=== PATIENT | male | born 1960 | race Caucasian/White ===

== ENCOUNTER 2017-05-12 19:20 | Observation (INO) | payer MEDICARE, SELFPAY ==
[2017-05-12 19:21] VITALS: BP 112/70; PULSE 77; RESP 18; TEMP 36.7; O2SAT 98; BMI 25.7
--- NOTE | 2017-05-12 20:08 | CT_ITS ---
STUDY: CT ABDOMEN AND PELVIS WITHOUT CONTRAST REASON FOR EXAM: Male, 56 years old. Abdominal pain, paracentesis performed today. RADIATION DOSAGE (If Supplied By Facility): CTDIvol = ( 14.17 ) mGy, DLP = ( 754.19 ) mGycm TECHNIQUE: Transaxial images were obtained from the dome of the diaphragm to the symphysis pubis without oral contrast, and without intravenous contrast. Sagittal and coronal images were reconstructed. Individualized dose optimization techniques were used for this CT. COMPARISON: 30 April 2017 FINDINGS: The visualized lung bases are unremarkable. The visualized portions of the heart are within normal limits. There is a diffuse contour abnormality of the liver consistent with cirrhotic changes. There are multiple gallstones. Normal spleen. Normal pancreas. Normal bilateral adrenal glands. Normal right kidney. Normal left kidney. Normal visualized stomach. Normal small intestine. Normal colon. The appendix is visualized and appears normal. There is diffuse atherosclerotic calcification of the abdominal aorta with elongation and tortuosity, but without a demonstrated aneurysm. Normal inferior vena cava. There is diffuse ascites throughout the abdomen particularly within the upper quadrants and bilateral paracolic gutters overall similar in comparison to the previous exam. Scattered mesenteric subcentimeter lymph nodes are present. Bladder is collapsed. Normal visualized prostate gland. Subcutaneous fluid layering within the right lower quadrant consistent with small fluid containing hernia is present. There are diffuse degenerative changes of the visualized lumbar spine. CT/Abdomen/Pelvis without Cont IMPRESSION: 1. Overall similar exam compared to 30 April 2017 with heterogeneous, nodular cirrhotic appearing liver. Unchanged diffuse abdominal ascites is present. 2. No evidence of bowel dilatation or air-fluid levels to suggest ileus versus obstruction. Scattered mesenteric lymph nodes similar to prior exam. Electronically Signed: Steven Perez DO at 22:10 EDT , Service support ,
[2017-05-12 20:46] LABS: Absolute Lymphocyte Count 1.88 X10^3/ul (0.83-4.51); Absolute Neutrophil Count 12.5 X10^3/uL (2.0-7.7); Basophil# 0.03 X10^3/uL; Basophil% 0.2 % (0-1); Eosinophil# 0.03 X10^3/uL; Eosinophils% 0.2 % (0-5); Hemoglobin 15.3 g/dl (13.0-16.5); Lymphocyte # 1.88 X10^3/ul (4.0); Lymphocyte % 11.6 % (19-41); Mean Corpuscular Hgb 32.8 pg (27.0-32.0); Mean Corpuscular Volume 96.4 fL (80-94); Mean Platelet Vol. 10.3 fl (6.2-12.0); Monocyte% 10.5 % (0-10); Neutrophil # 12.46 X10^3/uL (2.7-7.7); Neutrophil % 76.9 % (47-70); Platelet Count 117 K/mm3 (150-450); RBC Distribution Width CV 16.9 % (11.6-14.6); RBC Distribution Width SD 58.6 fl (35.1-43.9); Red Blood Count 4.67 M/mm3 (4.6-6.2); White Blood Count 16.2 K/mm3 (4.4-11.0)
[2017-05-12 20:47] LABS: Differential Indicated SCAN CRITERIA MET; POSITIVE COUNT NO; POSITIVE DIFFERENTIAL YES; POSITIVE MORPHOLOGY NO
[2017-05-12] MEDS: HYDROmorphone 1 MG/ML Syringe IV ×2 (20:56→22:36)
[2017-05-12] MEDS: Ondansetron 4 MG/2 ML Vial IV (20:56)
[2017-05-12] MEDS: 0.9% Normal Saline 1,000 ML 250 ML IV (20:57)
[2017-05-12 21:09] LABS: Differential Comment SCANNED
[2017-05-12 22:09] VITALS: PULSE 76; RESP 14; O2SAT 100
[2017-05-12 23:56] LABS: ALB/GLOB Ratio 0.5 RATIO (0.9-2.4); AST(SGOT) 66 U/L (15-37); Alanine Aminotransfer ALT/SGPT 21 U/L (12-78); Albumin, Serum 1.9 g/dL (3.4-5.0); Alkaline Phosphatase 302 U/L (45-117); Anion Gap 12 (5-15); BUN 26 mg/dL (7-18); BUN/Creat Ratio 5.5 RATIO (10-20); Calcium,Total 8.7 mg/dL (8.5-10.1); Chloride 98 mmol/L (98-107); EST Glomerular Filtration Rate 14 mL/min (>60); Est Glom Filt Rate - Afr Amer 17 mL/min (>60); Estimated Creatinine Clearance 18.69 ml/min; Globulin 3.5 g/dL (2.2-4.2); Glucose 98 mg/dL (70-110); Lipase 146 U/L (73-393); Potassium 5.1 mmol/L (3.5-5.1); Protein, Total 5.4 g/dL (6.4-8.2); Sodium Level 132 mmol/L (136-145)
--- NOTE | 2017-05-12 23:57 | ED.VISSUMM ---
- ER Visit Summary Date of Service: 05/12/17 Chief Complaint: [Abdominal pain] History of Present Illness: The patient is a 56 M [presents with abdominal pain that started after having his paracentesis today. Patient has a history of liver failure and chronic renal failure.. Patient has had similar pain like this multiple times in the past after paracentesis. Patient denies any fever. He has never had bacterial peritonitis. Patient's had some nausea today but no vomiting. He denies any diarrhea. Patient does not make urine.] Physical Examination: [HEENT-PERRLA, EOMI. Cranial nerves II through XII grossly intact. TMs clear. Mucous membranes moist. No adenopathy. Cardiovascular-regular rate and rhythm without murmur or ectopy Lungs-clear to auscultation, chest wall stable without crepitus or subcu emphysema Abdomen-normoactive bowel sounds, soft, tender diffusely with guarding. No rebound, rigidity or peritoneal signs. Extremities-intact ?4, normal range of motion, normal pulses, atraumatic] Test Results: [CBC with differential obtained showed elevated white blood cell count of 16.2, hemoglobin 15, hematocrit 45, platelets 117. Chemistries are pending. CT scan of the abdomen and pelvis showed chronic changes nothing significant.] Emergency Department Course and Treatment: [Patient was medicated with Dilaudid multiple times and continues to complain of pain he was also ordered fentanyl.] Treatment Plan: [Admit for pain control]. I do not feel patient has peritonitis. Disposition: [Admit] Impression: [Intractable abdominal pain] ED Disposition - Plan for ED Patient: Chief Complaint: Abd Pain Referrals: Huy Talbot III, MD [Primary Care Provider] -
[2017-05-13] VITALS (10 sets, daily range): BP systolic 103–121; BP diastolic 52–79; PULSE 67–83; RESP 12–18; TEMP 35.4–37.3; O2SAT 96–100; BMI 23.6
[2017-05-13] MEDS: fentaNYL 100 MCG/2 ML Ampul 50 MCG IV (00:14)
[2017-05-13] MEDS: Temazepam 15 MG Capsule PO (03:21)
--- NOTE | 2017-05-13 05:38 | PCM.HP.STD ---
Problem List (1) Diffuse abdominal pain Status: Acute History of Present Illness Date of Admission: 05/13/17 Chief Complaint: Diffuse acute on chronic abdominal pain The patient is a 56 year old M who was seen in the emergency room at [facility] with a chief complaint of diffuse abdominal pain. Patient has been seen many times at the hospital here for similar complaints, he usually has this complaint after undergoing a paracentesis and this time is no exception. Patient stated to this examiner that he was active with palliative care at home but they had not come back in a week to see him. Patient has no complaints of nausea, vomiting, diarrhea, hematochezia, or hematemesis. Patient did not complain of any chills or fevers to this examiner. Lab was obtained in the emergency room which showed an elevated white blood cell count 16.2, CMP was drawn and it was abnormal for a creatinine of 4.7, BUN of 26, bilirubin of 1.1, AST of 66, alkaline phosphatase of 302, and an albumin of 1.9. Patient's lipase was within normal limits. Patient underwent a CT scan of the abdomen and pelvis which showed nothing acute. Patient was given IV pain medication and this resolved the patient's pain for the most part. Patient has had multiple ER visits for the same complaint. I feel that it would be useful for him to follow-up with palliative care on a routine basis and I am not sure why he states that palliative care has not seen him in a week. I will place the patient in observation status on MedSurg 3, he will need to be dialyzed today, I have written for IV morphine at a low dose, patient told me that he did not have any pain medications at home although his home med list includes OxyIR. I was not able to talk to the patient's that she had left for home by the time I examined him. I will ask home health care social worker to get involved with this patient's care and verify that palliative care will follow up with him as an outpatient. Past Medical History Past Medical History (Chronic Problems): Chronic Problems Alcoholic liver disease (Chronic) Ascites (Chronic) COPD (chronic obstructive pulmonary disease) (Chronic) Chronic anticoagulation (Chronic) Coronary artery disease (Chronic) DM II (diabetes mellitus, type II), controlled (Chronic) Decompensated hepatic cirrhosis (Chronic) ESRD (end stage renal disease) on dialysis (Chronic) ETOH abuse (Chronic) Gallstones (Chronic) Gallstones (Chronic) Gout (Chronic) HLD (hyperlipidemia) (Chronic) Hypertension (Chronic) Pacemaker (Chronic) Paroxysmal atrial fibrillation (Chronic) Peripheral arterial occlusive disease (Chronic) S/P CABG x 3 (Chronic) PADILLA to LAD; CATARINA to LCX; SVG to RCA Tobacco use (Chronic) Venous insufficiency (Chronic) Wound dehiscence, surgical (Chronic) Allergies adhesive tape Adverse Reaction (Verified 05/12/17 19:23) Rash amlodipine besylate [From [facility]] Adverse Reaction (Verified 05/13/17 02:07) Unknown hydrochlorothiazide Adverse Reaction (Verified 05/13/17 02:07) Unknown CONTRAST DYE Adverse Reaction (Uncoded 05/13/17 02:07) Itching takes benadryl previous to dye Home Medications: Ambulatory Orders Medication Instructions Recorded Allopurinol 100 mg PO QHS 12/18/16 Pantoprazole Sodium [Protonix] 40 mg PO DAILY 12/18/16 Albuterol Inhaler [Ventolin Hfa] 2 puff INHALATION Q6H PRN PRN #1 01/01/17 inhaler Insulin Aspart [Novolog Flexpen] 0 units SC DAILY PRN 01/30/17 Folic Acid 1 mg PO QHS 03/07/17 Iron Polysaccharide Complex 150 mg PO QHS 03/07/17 [Ferrex 150] Lactulose [Chronulac] 30 gm PO TID 03/07/17 Magnesium Oxide [Mag-Ox 400] 250 mg PO TID 03/07/17 Ondansetron HCl [Zofran] 4 mg PO Q6H PRN PRN 03/07/17 Midodrine HCl 12.5 mg PO TID 04/10/17 Multivitamins,Ther W-Minerals 1 tablet PO DAILYCM 04/30/17 [Multivitamin With Minerals] Paroxetine [Paxil] 10 mg PO DAILY 04/30/17 Temazepam [Restoril] 15 mg PO QHS PRN 04/30/17 Thiamine Hydrochloride [Vitamin B1] 100 mg PO DAILYCM 04/30/17 Oxycodone [Oxyir] 5 mg PO Q4H PRN PRN #20 tablet 05/04/17 Surgical History: adenoidectomy, coronary bypass surgery - x 3., herniorrhaphy, pacemaker implantation, tonsillectomy, - - cabg in 2012 then Repair of sternotomy site x 2 2013 2014, BL Fem-pop, Arthroscopic knee surgery, pad with stents Psychiatric History: No pertinent psych hx Lives: Spouse/ Significant Other Smoking Status: Current every day smoker Tobacco Use: Cigarettes Alcohol: None Drugs: None - *Family History Maternal History Items: Heart Disease Paternal History Items: Heart Disease Sibling History Items: Diabetes, Heart Disease Review of Systems Constitutional: Denies: Anorexia, Chills, Fever, Night Sweats, Malaise, Weakness, Weight Change, Fatigue Eyes: Denies: Blurred vision, Cataracts, Conjunctivae Inflammation, Double vision HEENT: Denies: Difficulty Swallowing, Dysphasia, Ear Pain, Eye Pain, Head Aches, Hearing Changes, Nasal bleeding, Nasal Congestion, Post Nasal Drip Cardiovascular: Denies: Chest Pain, Claudication, Chest Pressure, Chest Tightness, Edema, Heaviness, Orthopnea, Palpitations, Paroxysmal Noc. Dyspnea, Syncope Respiratory: Denies: Cough, Hemoptysis, Pleuritic Pain, Shortness of Breath, Shortness of breath at rest, Shortness of breath upon exertion, Sputum production Gastrointestinal: Reports: Abdominal Pain. Denies: Constipation, Diarrhea, Dyspepsia, Hematemesis, Hematochezia, Nausea, Melena, Vomiting Genitourinary: Denies: Dysuria, Frequency, Hematuria, Hesitancy, Incontinence, Nocturia, Urgency Musculoskeletal: Denies: Back Pain, Foot Pain, Hand Pain, Joint Pain, Joint stiffness, Joint swelling, Joint Tenderness Skin: Denies: Dryness, Pruritis, Rash Neurological: Denies: Blurred vision, Double vision, Slurred speech, Difficulty swallowing, Focal weakness, Headaches, Incoordination, Numbness, Tingling Psychiatric: Denies: Anxiety, Depression, Homicidal Ideations, Suicidal Ideations Endocrine: Denies: Change in Body Habitus, Heat/ Cold Intolerance, Polydipsia, Polyuria Hematologic/ Lymphatic: Denies: Adenopathy, Anemia, Easy Bruising, Easy Bleeding, Petechiae, Purpura VTE Information - Inpt Only VTE Present on Admission: No VTE Mechan Device Prophylaxis: None VTE Pharm Prophylaxis ordered?: Yes Patient Problems: Active and Suspected Problems Diffuse abdominal pain (Acute) - Physical Exam General: Alert, Oriented x3, Cooperative, No apparent distress, Well developed, Well nourished HEENT: Atraumatic, PERRLA, EOMI, Normocephalic Oral: Moist Mucosa Neck: Supple, No JVD, Negative Carotid Bruits, No Nuchal Rigidity, Trachea Midline, Thyroid Normal Size and Texture Lungs: Clear to auscultation, Normal air movement, No rhonchi, No wheeze, No rales Cardiovascular: Regular rate, Regular Rhythm, Normal S1, Normal S2, No murmurs, No Ectopic Activity, PMI Normal, No rub noted, No Gallop Abdomen: Bowel Sounds Present, Soft, Non Tender, No hernias noted Extremities: No clubbing, No cyanosis, Capillary Refill Less than 3 Seconds Skin: No rashes, No breakdown Musculoskeletal: No Tenderness to Palpation of Joints or Extremities Neurological: Cranial nerves II-XII grossly intact, Neuro grossly intact, Sensory exam intact to light touch and pain, Coordination normal Psych/Mental Status: Normal Affect, Appropriate, Alert and oriented to time, place, person, mood and affect Vital Signs Temp Pulse Resp BP Pulse Ox 97.8 F 76 16 121/79 100 05/13/17 01:30 05/13/17 01:30 05/13/17 01:30 05/13/17 01:30 05/13/17 01:30 Oxygen Delivery Method Room Air Weight: 76.6 kg Body Mass Index (BMI) 23.6 Assessment/Plan Active and Suspected Problems Diffuse abdominal pain (Acute) #1 chronic recurrent abdominal pain-etiology is unclear and probably will not be explained by any further testing. Again patient seems to seek medical care shortly after he undergoes a paracentesis. I will place the patient in observation status on MedSurg [address] him on a low dose of morphine. He will need close follow-up with palliative care and I expect he will be discharged later today. #2 end-stage renal disease-nephrology will be consulted to dialyze the patient #3 alcoholic cirrhosis end-stage #4 leukocytosis-etiology unclear, I do not feel the patient has an active infection at this time #5 chronic obstructive pulmonary disease #6 type 2 diabetes
[2017-05-13] MEDS: Lactulose 20 GM/30 ML UDC 30 GM PO ×2 (06:44→13:40)
[2017-05-13] MEDS: Midodrine HCl 5 MG Tablet 12.5 MG PO ×2 (06:45→13:40)
[2017-05-13] MEDS: Heparin Injection 5,000 UNITS/ML Syringe 5000 UNITS SC ×2 (06:45→13:40)
[2017-05-13 08:16] LABS: Bedside Glucose 128 mg/dL (70-110)
--- NOTE | 2017-05-13 08:40 | PCA ---
Call placed to [facility] dialysis ([phone]), spoke with Jasmin who stated that due to dialysis not knowing pt was admitted, they will not be able to comehook pt up to dialysis until after 1400.
--- NOTE | 2017-05-13 08:58 | CASEMGMT ---
Dr. Zamora put in a referral for palliative care to be more involved w/pt. SW called [facility], spoke w/Citlali. They saw pt once at the hospital and were planning to call pt today to set up an appointment. Citlali states if pt goes home today the CRITICAL CARE PARAMEDIC can see pt at home tomorrow. SW faxed the order and clinical updates to Citlali, will let her know if pt goes home today--she will follow up w/pt and make an appointment for tomorrow. DIANA Fernando, RN FLIGHT
[2017-05-13] MEDS: Pantoprazole Sodium 40 MG Tablet PO (10:16)
[2017-05-13] MEDS: PARoxetine 10 MG Tablet PO (10:16)
--- NOTE | 2017-05-13 11:11 | CASEMGMT ---
As per charge account authorizer, pt will be discharged later today. GILLES Blake verified pt's number. SW called Citlali santana/palliative care at [facility], she will call pt to set up appointment tomorrow at home with the nurse practitioner tomorrow from [facility]. DIANA Fernando, DENTAL EQUIPMENT TECHNICIAN
--- NOTE | 2017-05-13 11:23 | PCM.CONS.R ---
Problem List (1) ESRD (end stage renal disease) on dialysis Status: Chronic Consultation - Renal PCP/ Referring MD: Requesting physician: [] Primary care physician: Huy Talbot - History of Present Illness History of Present Illness: The patient is a 56 year old M past medical history of end-stage liver disease from alcoholic cirrhosis, end-stage kidney disease on hemodialysis Wednesday and Wednesday. Patient presented with abdominal pain after the paracentesis. Patient is getting paracentesis 3 days a week. The last the last one was yesterday with 8 L removal.The pain was severe so he presented to the emergency room. Patient had multiple admission for the similar complaints. Patient has a right IJ tunneled catheter for dialysis. I was consulted for hemodialysis provision. Currently patient feeling okay, his abdominal pain is less but he still have lower abdominal pain ROS: 10 systems review is negative except what mentioned in the HPI [] - Allergies Allergies: Allergies adhesive tape Adverse Reaction (Verified 05/12/17 19:23) Rash amlodipine besylate [From [facility]] Adverse Reaction (Verified 05/13/17 02:07) Unknown hydrochlorothiazide Adverse Reaction (Verified 05/13/17 02:07) Unknown CONTRAST DYE Adverse Reaction (Uncoded 05/13/17 02:07) Itching takes benadryl previous to dye - Current Medications Current Medications: Current Medications Acetaminophen (Tylenol) 650 mg PO Q6H PRN PRN PRN Reason: Mild Pain (scale 0-3)/T>100.7 Albuterol Sulfate (Ventolin Aerosols) 2.5 mg INHALATION Q4H PRN PRN PRN Reason: SOB &/OR WHEEZING Dextrose (D50w Syringe) 0 gm IV X1 PRN; Protocol PRN Reason: Hypoglycemia Glucagon () 1 mg IM .X1 PRN PRN Reason: Hypoglycemia Heparin Sodium (Porcine) () 5,000 units SC Q8 JENIFFER Last Admin: 05/13/17 06:45 Dose: 5,000 units Sodium Chloride () 1,000 mls @ 0 mls/hr IV .Q0M JENIFFER PRN Reason: KVO Last Admin: 05/12/17 20:57 Dose: 250 mls/hr Insulin Aspart (Novolog Flexpen (Bkc)) 0 units SC 0800,1200,1700,2200 JENIFFER PRN Reason: Protocol Last Admin: 05/13/17 08:17 Dose: Not Given Lactulose (Chronulac, Cephulac) 30 gm PO TID [facility] Last Admin: 05/13/17 06:44 Dose: 30 gm Midodrine (Proamatine) 12.5 mg PO TID [facility] Last Admin: 05/13/17 06:45 Dose: 12.5 mg Morphine Sulfate (Morphine) 1 - 2 mg IV Q4H PRN PRN PRN Reason: Moderate Pain (pain scale 4-5) Last Admin: 05/13/17 10:16 Dose: 2 mg Ondansetron HCl (Zofran) 4 mg IV Q6H PRN PRN PRN Reason: Nausea Pantoprazole Sodium (Protonix) 40 mg PO DAILY [facility] Last Admin: 05/13/17 10:16 Dose: 40 mg Paroxetine HCl (Paxil) 10 mg PO DAILY [facility] Last Admin: 05/13/17 10:16 Dose: 10 mg Sodium Chloride () 5 - 30 ml IV UD PRN PRN Reason: SALINE FLUSH - Past Medical History Past Medical History (Chronic Problems): Chronic Problems Alcoholic liver disease (Chronic) Ascites (Chronic) COPD (chronic obstructive pulmonary disease) (Chronic) Chronic anticoagulation (Chronic) Coronary artery disease (Chronic) DM II (diabetes mellitus, type II), controlled (Chronic) Decompensated hepatic cirrhosis (Chronic) ESRD (end stage renal disease) on dialysis (Chronic) ETOH abuse (Chronic) Gallstones (Chronic) Gallstones (Chronic) Gout (Chronic) HLD (hyperlipidemia) (Chronic) Hypertension (Chronic) Pacemaker (Chronic) Paroxysmal atrial fibrillation (Chronic) Peripheral arterial occlusive disease (Chronic) S/P CABG x 3 (Chronic) PADILLA to LAD; CATARINA to LCX; SVG to RCA Tobacco use (Chronic) Venous insufficiency (Chronic) Wound dehiscence, surgical (Chronic) - Past Surgical History Surgical History: adenoidectomy, coronary bypass surgery - x 3., herniorrhaphy, pacemaker implantation, tonsillectomy, - - cabg in 2012 then Repair of sternotomy site x 2 2013 2014, BL Fem-pop, Arthroscopic knee surgery, pad with stents - Social History Smoking Status: Current every day smoker Alcohol: None Drugs: None - Family History Maternal History Items: Heart Disease Paternal History Items: Heart Disease Sibling History Items: Diabetes, Heart Disease Patient Problems: Active and Suspected Problems Diffuse abdominal pain (Acute) - Physical Exam General: Alert, Oriented x3 HEENT: Atraumatic, PERRLA Oral: Moist Mucosa Neck: Supple, No JVD Lungs: Clear to auscultation, Normal air movement, No rhonchi, No wheeze, No rales Cardiovascular: Regular rate, Regular Rhythm, Normal S1, Normal S2 Abdomen: Bowel Sounds Present, Soft, Tender - lower abbominal tenderness Extremities: No clubbing, No cyanosis, - - +1 edema Skin: No rashes Musculoskeletal: No Tenderness to Palpation of Joints or Extremities, No Muscle Wasting Lymphatic: No Cervical, Supraclavicular, or Inguinal Adenopathy Neurological: Cranial nerves II-XII grossly intact, Neuro grossly intact Psych/Mental Status: Normal Affect Vital Signs Temp Pulse Resp BP Pulse Ox 95.7 F 74 16 108/75 100 05/13/17 08:38 05/13/17 08:38 05/13/17 08:38 05/13/17 08:38 05/13/17 08:38 Oxygen Delivery Method Room Air Weight: 76.6 kg Body Mass Index (BMI) 23.6 Intake and Output for Last 24 Hours 05/11/17 05/12/17 05/13/17 23:59 23:59 23:59 Intake Total 378 Balance 378 POC Glucose 05/13/17 08:11 POC Glucose 128 H Assessment/Plan Active and Suspected Problems Diffuse abdominal pain (Acute) 1-end-stage renal disease in a Wednesday dialysis schedule. Patient had a right IJ tunneled catheter for dialysis. His dialysis cath is functioning well. We will do hemodialysis today as per the chronic order. Do the session today with 2 K bath . Please dose his medication for ESRD patients 2-hyponatremia most probably related to fluid intake. UF as per his DW. The fluid restriction around 1.2 L and. 3-recurrent abdominal pain after paracentesis. May be related to a peritoneum irritation from the negative pressure created with by the fluid removal. Patient might benefit from TIPS procedure which will decrease portal hypertension, the ascites, and the need for frequent paracentesis. She is going to follow with hepatology clinic at the [facility] next week. 4-leukocytosis will defer the management to the primary team 5-end-stage liver disease from alcoholic cirrhosis. His blood pressure is well controlled. on midodrine and lactulose. Thank you for the consult. will continue to follow with you Dolores Aleman
--- NOTE | 2017-05-13 11:33 | CON.PCM_ITS ---
Problem List (1) ESRD (end stage renal disease) on dialysis Status: Chronic Consultation - Renal PCP/ Referring MD: Requesting physician: [] Primary care physician: Huy Talbot - History of Present Illness History of Present Illness: The patient is a 56 year old M past medical history of end-stage liver disease from alcoholic cirrhosis, end-stage kidney disease on hemodialysis Wednesday and Wednesday. Patient presented with abdominal pain after the paracentesis. Patient is getting paracentesis 3 days a week. The last the last one was yesterday with 8 L removal.The pain was severe so he presented to the emergency room. Patient had multiple admission for the similar complaints. Patient has a right IJ tunneled catheter for dialysis. I was consulted for hemodialysis provision. Currently patient feeling okay, his abdominal pain is less but he still have lower abdominal pain ROS: 10 systems review is negative except what mentioned in the HPI [] - Allergies Allergies: Allergies adhesive tape Adverse Reaction (Verified 05/12/17 19:23) Rash amlodipine besylate [From [facility]] Adverse Reaction (Verified 05/13/17 02:07) Unknown hydrochlorothiazide Adverse Reaction (Verified 05/13/17 02:07) Unknown CONTRAST DYE Adverse Reaction (Uncoded 05/13/17 02:07) Itching takes benadryl previous to dye - Current Medications Current Medications: Current Medications Acetaminophen (Tylenol) 650 mg PO Q6H PRN PRN PRN Reason: Mild Pain (scale 0-3)/T>100.7 Albuterol Sulfate (Ventolin Aerosols) 2.5 mg INHALATION Q4H PRN PRN PRN Reason: SOB &/OR WHEEZING Dextrose (D50w Syringe) 0 gm IV X1 PRN; Protocol PRN Reason: Hypoglycemia Glucagon () 1 mg IM .X1 PRN PRN Reason: Hypoglycemia Heparin Sodium (Porcine) () 5,000 units SC Q8 [facility] Last Admin: 05/13/17 06:45 Dose: 5,000 units Sodium Chloride () 1,000 mls @ 0 mls/hr IV .Q0M JEN[facility]FFER PRN Reason: KVO Last Admin: 05/12/17 20:57 Dose: 250 mls/hr Insulin Aspart (Novolog Flexpen (Bkc)) 0 units SC 0800,1200,1700,2200 [facility] PRN Reason: Protocol Last Admin: 05/13/17 08:17 Dose: Not Given Lactulose (Chronulac, Cephulac) 30 gm PO TID [facility] Last Admin: 05/13/17 06:44 Dose: 30 gm Midodrine (Proamatine) 12.5 mg PO TID [facility] Last Admin: 05/13/17 06:45 Dose: 12.5 mg Morphine Sulfate (Morphine) 1 - 2 mg IV Q4H PRN PRN PRN Reason: Moderate Pain (pain scale 4-5) Last Admin: 05/13/17 10:16 Dose: 2 mg Ondansetron HCl (Zofran) 4 mg IV Q6H PRN PRN PRN Reason: Nausea Pantoprazole Sodium (Protonix) 40 mg PO DAILY [facility] Last Admin: 05/13/17 10:16 Dose: 40 mg Paroxetine HCl (Paxil) 10 mg PO DAILY [facility] Last Admin: 05/13/17 10:16 Dose: 10 mg Sodium Chloride () 5 - 30 ml IV UD PRN PRN Reason: SALINE FLUSH - Past Medical History Past Medical History (Chronic Problems): Chronic Problems Alcoholic liver disease (Chronic) Ascites (Chronic) COPD (chronic obstructive pulmonary disease) (Chronic) Chronic anticoagulation (Chronic) Coronary artery disease (Chronic) DM II (diabetes mellitus, type II), controlled (Chronic) Decompensated hepatic cirrhosis (Chronic) ESRD (end stage renal disease) on dialysis (Chronic) ETOH abuse (Chronic) Gallstones (Chronic) Gallstones (Chronic) Gout (Chronic) HLD (hyperlipidemia) (Chronic) Hypertension (Chronic) Pacemaker (Chronic) Paroxysmal atrial fibrillation (Chronic) Peripheral arterial occlusive disease (Chronic) S/P CABG x 3 (Chronic) PADILLA to LAD; CATARINA to LCX; SVG to RCA Tobacco use (Chronic) Venous insufficiency (Chronic) Wound dehiscence, surgical (Chronic) - Past Surgical History Surgical History: adenoidectomy, coronary bypass surgery - x 3., herniorrhaphy, pacemaker implantation, tonsillectomy, - - cabg in 2012 then Repair of sternotomy site x 2 2013 2014, BL Fem-pop, Arthroscopic knee surgery, pad with stents - Social History Smoking Status: Current every day smoker Alcohol: None Drugs: None - Family History Maternal History Items: Heart Disease Paternal History Items: Heart Disease Sibling History Items: Diabetes, Heart Disease Patient Problems: Active and Suspected Problems Diffuse abdominal pain (Acute) - Physical Exam General: Alert, Oriented x3 HEENT: Atraumatic, PERRLA Oral: Moist Mucosa Neck: Supple, No JVD Lungs: Clear to auscultation, Normal air movement, No rhonchi, No wheeze, No rales Cardiovascular: Regular rate, Regular Rhythm, Normal S1, Normal S2 Abdomen: Bowel Sounds Present, Soft, Tender - lower abbominal tenderness Extremities: No clubbing, No cyanosis, - - +1 edema Skin: No rashes Musculoskeletal: No Tenderness to Palpation of Joints or Extremities, No Muscle Wasting Lymphatic: No Cervical, Supraclavicular, or Inguinal Adenopathy Neurological: Cranial nerves II-XII grossly intact, Neuro grossly intact Psych/Mental Status: Normal Affect Vital Signs Temp Pulse Resp BP Pulse Ox 95.7 F 74 16 108/75 100 05/13/17 08:38 05/13/17 08:38 05/13/17 08:38 05/13/17 08:38 05/13/17 08:38 Oxygen Delivery Method Room Air Weight: 76.6 kg Body Mass Index (BMI) 23.6 Intake and Output for Last 24 Hours 05/11/17 05/12/17 05/13/17 23:59 23:59 23:59 Intake Total 378 Balance 378 POC Glucose 05/13/17 08:11 POC Glucose 128 H Assessment/Plan Active and Suspected Problems Diffuse abdominal pain (Acute) 1-end-stage renal disease in a Wednesday dialysis schedule. Patient had a right IJ tunneled catheter for dialysis. His dialysis cath is functioning well. We will do hemodialysis today as per the chronic order. Do the session today with 2 K bath . Please dose his medication for ESRD patients 2-hyponatremia most probably related to fluid intake. UF as per his DW. The fluid restriction around 1.2 L and. 3-recurrent abdominal pain after paracentesis. May be related to a peritoneum irritation from the negative pressure created with by the fluid removal. Patient might benefit from TIPS procedure which will decrease portal hypertension, the ascites, and the need for frequent paracentesis. She is going to follow with hepatology clinic at the [facility] next week. 4-leukocytosis will defer the management to the primary team 5-end-stage liver disease from alcoholic cirrhosis. His blood pressure is well controlled. on midodrine and lactulose. Thank you for the consult. will continue to follow with you Dolores Aleman
[2017-05-13 11:41] LABS: Bedside Glucose 156 mg/dL (70-110)
--- NOTE | 2017-05-13 11:43 | PCM.PN.HOSP ---
Patient Problems: Active and Suspected Problems Diffuse abdominal pain (Acute) Subjective: Patient is ambulatory to the restroom, nontoxic-appearing Vitals/I&O's: Vital Signs Temp Pulse Resp BP Pulse Ox 95.7 F 74 16 108/75 100 05/13/17 08:38 05/13/17 08:38 05/13/17 08:38 05/13/17 08:38 05/13/17 08:38 Oxygen Delivery Method Room Air Weight: 168 lb 13.985 oz Body Mass Index (BMI) 23.6 Intake and Output for Last 24 Hours 05/11/17 05/12/17 05/13/17 23:59 23:59 23:59 Intake Total 378 Balance 378 General: Alert, No apparent distress Abdomen: Bowel Sounds Present, Soft, - - Ascites, nontender throughout, no hernias, no superficial erythema, no excessive bruising Extremities: No edema Laboratory Results 05/13/17 08:11: POC Glucose 128 H 05/13/17 11:34: POC Glucose 156 H Current Medications Acetaminophen (Tylenol) 650 mg PO Q6H PRN PRN PRN Reason: Mild Pain (scale 0-3)/T>100.7 Albuterol Sulfate (Ventolin Aerosols) 2.5 mg INHALATION Q4H PRN PRN PRN Reason: SOB &/OR WHEEZING Dextrose (D50w Syringe) 0 gm IV X1 PRN; Protocol PRN Reason: Hypoglycemia Glucagon () 1 mg IM .X1 PRN PRN Reason: Hypoglycemia Heparin Sodium (Porcine) () 5,000 units SC Q8 [facility] Last Admin: 05/13/17 06:45 Dose: 5,000 units Sodium Chloride () 1,000 mls @ 0 mls/hr IV .Q0M JENIFFER PRN Reason: KVO Last Admin: 05/12/17 20:57 Dose: 250 mls/hr Insulin Aspart (Novolog Flexpen (Bkc)) 0 units SC 0800,1200,1700,2200 [facility] PRN Reason: Protocol Last Admin: 05/13/17 08:17 Dose: Not Given Lactulose (Chronulac, Cephulac) 30 gm PO TID [facility] Last Admin: 05/13/17 06:44 Dose: 30 gm Midodrine (Proamatine) 12.5 mg PO TID [facility] Last Admin: 05/13/17 06:45 Dose: 12.5 mg Morphine Sulfate (Morphine) 1 - 2 mg IV Q4H PRN PRN PRN Reason: Moderate Pain (pain scale 4-5) Last Admin: 05/13/17 10:16 Dose: 2 mg Ondansetron HCl (Zofran) 4 mg IV Q6H PRN PRN PRN Reason: Nausea Pantoprazole Sodium (Protonix) 40 mg PO DAILY [facility] Last Admin: 05/13/17 10:16 Dose: 40 mg Paroxetine HCl (Paxil) 10 mg PO DAILY [facility] Last Admin: 05/13/17 10:16 Dose: 10 mg Sodium Chloride () 5 - 30 ml IV UD PRN PRN Reason: SALINE FLUSH Assessment/Plan Active and Suspected Problems Diffuse abdominal pain (Acute) Patient is seen and examined, interval notes reviewed. Patient was asking for more pain medication. He has had no fever, vital signs are stable. He states the poke from the needle causes soreness. Appreciate nephrology notes. Laboratories and CT images reviewed. Discharge summary from 04/30/2017 reviewed. He states he did receive information from someone who came to his house with pamphlets about something but he did not follow-up on this. Patient states he is unaware of filling pain med Rx; inconsistent with [place] review. 1. Chronic recurrent abdominal pain, post paracentesis 2. End-stage renal disease -routine dialysis today 3. EtOH cirrhosis, end-stage 4. Leukocytosis, NOS, may be reactive, no sign symptoms of active infection 5. COPD 6. Type 2 diabetes He is medically stable for discharge after his hemodialysis session. Patient is informed no further narcotics will be prescribed at discharge. Discussed with nursing. administrative services director will be contacted regarding palliative care services. OARRS is reviewed: 05/04/2017 oxycodone 5 mg #20 filled at [facility] pharmacy 05/04/2017 [facility] 5 mg #[facility] 04/21/2017 oxycodone 5 mg #20 filled 04/19/2017 temazepam 50 mg #30 filled 04/12/2017 oxycodone 5 mg #12 filled 03/31/2017 oxycodone/APAP #12 filled 03/30/2017 oxycodone 5 mg #4 filled 03/26/2017 temazepam 15 mg #20 filled 03/16/2017 temazepam 7.5 #5 filled 01/01/2017l lorazepam 1 mg #60 filled 09/04/2016 Librium 25 mg #30 filled 09/04/2016 oxycodone 5 mg #10 07/31/2016 Vicodin #6 filled
--- NOTE | 2017-05-13 12:14 | PN_ITS ---
Patient Problems: Active and Suspected Problems Diffuse abdominal pain (Acute) Subjective: Patient is ambulatory to the restroom, nontoxic-appearing Vitals/I&O's: Vital Signs Temp Pulse Resp BP Pulse Ox 95.7 F 74 16 108/75 100 05/13/17 08:38 05/13/17 08:38 05/13/17 08:38 05/13/17 08:38 05/13/17 08:38 Oxygen Delivery Method Room Air Weight: 168 lb 13.985 oz Body Mass Index (BMI) 23.6 Intake and Output for Last 24 Hours 05/11/17 05/12/17 05/13/17 23:59 23:59 23:59 Intake Total 378 Balance 378 General: Alert, No apparent distress Abdomen: Bowel Sounds Present, Soft, - - Ascites, nontender throughout, no hernias, no superficial erythema, no excessive bruising Extremities: No edema Laboratory Results 05/13/17 08:11: POC Glucose 128 H 05/13/17 11:34: POC Glucose 156 H Current Medications Acetaminophen (Tylenol) 650 mg PO Q6H PRN PRN PRN Reason: Mild Pain (scale 0-3)/T>100.7 Albuterol Sulfate (Ventolin Aerosols) 2.5 mg INHALATION Q4H PRN PRN PRN Reason: SOB &/OR WHEEZING Dextrose (D50w Syringe) 0 gm IV X1 PRN; Protocol PRN Reason: Hypoglycemia Glucagon () 1 mg IM .X1 PRN PRN Reason: Hypoglycemia Heparin Sodium (Porcine) () 5,000 units SC Q8 [facility] Last Admin: 05/13/17 06:45 Dose: 5,000 units Sodium Chloride () 1,000 mls @ 0 mls/hr IV .Q0M JENIFFER PRN Reason: KVO Last Admin: 05/12/17 20:57 Dose: 250 mls/hr Insulin Aspart (Novolog Flexpen (Bkc)) 0 units SC 0800,1200,1700,2200 [facility] PRN Reason: Protocol Last Admin: 05/13/17 08:17 Dose: Not Given Lactulose (Chronulac, Cephulac) 30 gm PO TID [facility] Last Admin: 05/13/17 06:44 Dose: 30 gm Midodrine (Proamatine) 12.5 mg PO TID [facility] Last Admin: 05/13/17 06:45 Dose: 12.5 mg Morphine Sulfate (Morphine) 1 - 2 mg IV Q4H PRN PRN PRN Reason: Moderate Pain (pain scale 4-5) Last Admin: 05/13/17 10:16 Dose: 2 mg Ondansetron HCl (Zofran) 4 mg IV Q6H PRN PRN PRN Reason: Nausea Pantoprazole Sodium (Protonix) 40 mg PO DAILY [facility] Last Admin: 05/13/17 10:16 Dose: 40 mg Paroxetine HCl (Paxil) 10 mg PO DAILY [facility] Last Admin: 05/13/17 10:16 Dose: 10 mg Sodium Chloride () 5 - 30 ml IV UD PRN PRN Reason: SALINE FLUSH Assessment/Plan Active and Suspected Problems Diffuse abdominal pain (Acute) Patient is seen and examined, interval notes reviewed. Patient was asking for more pain medication. He has had no fever, vital signs are stable. He states the poke from the needle causes soreness. Appreciate nephrology notes. Laboratories and CT images reviewed. Discharge summary from 04/30/2017 reviewed. He states he did receive information from someone who came to his house with pamphlets about something but he did not follow-up on this. Patient states he is unaware of filling pain med Rx; inconsistent with OARRS review. 1. Chronic recurrent abdominal pain, post paracentesis 2. End-stage renal disease -routine dialysis today 3. EtOH cirrhosis, end-stage 4. Leukocytosis, NOS, may be reactive, no sign symptoms of active infection 5. COPD 6. Type 2 diabetes He is medically stable for discharge after his hemodialysis session. Patient is informed no further narcotics will be prescribed at discharge. Discussed with nursing. disability services coordinator will be contacted regarding palliative care services. OARRS is reviewed: 05/04/2017 oxycodone 5 mg #20 filled at [facility] pharmacy 05/04/2017 [facility] 5 mg [facility] 04/21/2017 oxycodone 5 mg #20 filled 04/19/2017 temazepam 50 mg #30 filled 04/12/2017 oxycodone 5 mg #12 filled 03/31/2017 oxycodone/APAP #12 filled 03/30/2017 oxycodone 5 mg #4 filled 03/26/2017 temazepam 15 mg #20 filled 03/16/2017 temazepam 7.5 #5 filled 01/01/2017l lorazepam 1 mg #60 filled 09/04/2016 Librium 25 mg #30 filled 09/04/2016 oxycodone 5 mg #10 07/31/2016 Vicodin #6 filled
--- NOTE | 2017-05-13 12:16 | PCM.DC ---
- Discharge Diagnoses Current Active Problems: Current Active and Chronic Problems Diffuse abdominal pain (Acute) You will use the following diet at home:: Other - Resume usual diet Discharge Activity: - - Resume usual activity Additional Instructions: Continue usual follow-up with your physicians for paracenteses, and dialysis schedule Allergies/Adverse Reactions: Allergies adhesive tape Adverse Reaction (Verified 05/12/17 19:23) Rash amlodipine besylate [From [facility]] Adverse Reaction (Verified 05/13/17 02:07) Unknown hydrochlorothiazide Adverse Reaction (Verified 05/13/17 02:07) Unknown CONTRAST DYE Adverse Reaction (Uncoded 05/13/17 02:07) Itching takes benadryl previous to dye Medications to take at Discharge Allopurinol 100 mg PO QHS 12/18/16 Pantoprazole Sodium [Protonix] 40 mg PO DAILY 12/18/16 Albuterol Inhaler [Ventolin Hfa] 2 puff INHALATION Q6H PRN PRN #1 inhaler 01/01/17 Insulin Aspart [Novolog Flexpen] 0 units SC DAILY PRN 01/30/17 Folic Acid 1 mg PO QHS 03/07/17 Iron Polysaccharide Complex [Ferrex 150] 150 mg PO QHS 03/07/17 Lactulose [Chronulac] 30 gm PO TID 03/07/17 Magnesium Oxide [Mag-Ox 400] 250 mg PO TID 03/07/17 Ondansetron HCl [Zofran] 4 mg PO Q6H PRN PRN 03/07/17 Midodrine HCl 12.5 mg PO TID 04/10/17 Multivitamins,Ther W-Minerals [Multivitamin With Minerals] 1 tablet PO DAILYCM 04/30/17 Paroxetine [Paxil] 10 mg PO DAILY 04/30/17 Temazepam [Restoril] 15 mg PO QHS PRN 04/30/17 Thiamine Hydrochloride [Vitamin B1] 100 mg PO DAILYCM 04/30/17 Oxycodone [Oxyir] 5 mg PO Q4H PRN PRN #20 tablet 05/04/17 Primary Care Physician: Huy Talbot III, MD [Primary Care Provider] -
--- NOTE | 2017-05-13 12:18 | PCM.DC.SUM ---
Discharge Date and Diagnosis - Problem List Patient Problems: Active and Suspected Problems Diffuse abdominal pain (Acute) Date of Admission: 05/13/17 Date of Discharge: 05/13/17 - Primary Discharge Diagnosis Active and Suspected Problems Diffuse abdominal pain (Acute) - Secondary Discharge Diagnosis Chronic Problems Alcoholic liver disease (Chronic) Ascites (Chronic) COPD (chronic obstructive pulmonary disease) (Chronic) Chronic anticoagulation (Chronic) Coronary artery disease (Chronic) DM II (diabetes mellitus, type II), controlled (Chronic) Decompensated hepatic cirrhosis (Chronic) ESRD (end stage renal disease) on dialysis (Chronic) ETOH abuse (Chronic) Gallstones (Chronic) Gallstones (Chronic) Gout (Chronic) HLD (hyperlipidemia) (Chronic) Hypertension (Chronic) Pacemaker (Chronic) Paroxysmal atrial fibrillation (Chronic) Peripheral arterial occlusive disease (Chronic) S/P CABG x 3 (Chronic) PADILLA to LAD; CATARINA to LCX; SVG to RCA Tobacco use (Chronic) Venous insufficiency (Chronic) Wound dehiscence, surgical (Chronic) Hospital Course and Treatment Operations: None Summary of Care Provided: The patient is a 56 year old M with past history of EtOH cirrhosis, ascites chronic, COPD, diabetes 2 with end-stage renal disease on dialysis and a history EtOH abuse, hypertension, PAF, CAD status post CABG, hypertension, pacemaker, PAF, who presented to the ED at [facility] with complaint of diffuse abdominal pain after his usual schedule paracentesis. He has been emergency room many times for similar complaints and usually has this pain after undergoing paracentesis; this time was similar. There was no nausea vomiting or diarrhea, hematochezia or hematemesis. Patient underwent a CT scan of the abdomen and pelvis which showed nothing acute. Laboratories were consistent with underlying diagnosis of EtOH liver disease/cirrhosis, with leukocytosis 16.2. No fever and did not demonstrate septic physiology. Patient was given IV pain analgesics with resolution. Patient was last admitted to hospital for similar complaints 04/30/2017. There was no evidence of spontaneous bacterial peritonitis; no antibiotics were required at discharge. Palliative care referral was made. The patient was observed and supported. He was kindly seen in hematology consultation for routine hemodialysis. Patient is seen and examined on 05/13/17; interval notes reviewed. Patient was asking for more pain medication. He had no fever, vital signs were stable. He stated the poke from the needle caused soreness. He stated he received information from someone who came to his house with pamphlets about something but he did not follow-up on this. Patient states he is unaware of filling pain med Rx; this was inconsistent with OARRS review. 1. Chronic recurrent abdominal pain, post paracentesis 2. End-stage renal disease -routine dialysis today 3. EtOH cirrhosis, end-stage 4. Leukocytosis, NOS, may be reactive, no sign symptoms of active infection 5. COPD 6. Type 2 diabetes He was medically stable for discharge after his hemodialysis session on 05/13/17. Patient was informed based on OARRS review no further narcotics would be prescribed at discharge. Discussed with nursing. coordinator volunteer services will be contacted regarding palliative care services. OARRS is reviewed: 05/04/2017 oxycodone 5 mg #20 filled at [facility] pharmacy 05/04/2017 oxycodone 5 mg #20 filled at [facility] pharmacy 04/21/2017 oxycodone 5 mg #20 filled 04/19/2017 temazepam 50 mg #30 filled 04/12/2017 oxycodone 5 mg #12 filled 03/31/2017 oxycodone/APAP #12 filled 03/30/2017 oxycodone 5 mg #4 filled 03/26/2017 temazepam 15 mg #20 filled 03/16/2017 temazepam 7.5 #5 filled 01/01/2017l lorazepam 1 mg #60 filled 09/04/2016 Librium 25 mg #30 filled 09/04/2016 oxycodone 5 mg #10 07/31/2016 Vicodin #6 filled Discharge Activity: - - Resume usual activity Home Medications: Medications to take at Discharge Allopurinol 100 mg PO QHS 12/18/16 Pantoprazole Sodium [Protonix] 40 mg PO DAILY 12/18/16 Albuterol Inhaler [Ventolin Hfa] 2 puff INHALATION Q6H PRN PRN #1 inhaler 01/01/17 Insulin Aspart [Novolog Flexpen] 0 units SC DAILY PRN 01/30/17 Folic Acid 1 mg PO QHS 03/07/17 Iron Polysaccharide Complex [Ferrex 150] 150 mg PO QHS 03/07/17 Lactulose [Chronulac] 30 gm PO TID 03/07/17 Magnesium Oxide [Mag-Ox 400] 250 mg PO TID 03/07/17 Ondansetron HCl [Zofran] 4 mg PO Q6H PRN PRN 03/07/17 Midodrine HCl 12.5 mg PO TID 04/10/17 Multivitamins,Ther W-Minerals [Multivitamin With Minerals] 1 tablet PO DAILYCM 04/30/17 Paroxetine [Paxil] 10 mg PO DAILY 04/30/17 Temazepam [Restoril] 15 mg PO QHS PRN 04/30/17 Thiamine Hydrochloride [Vitamin B1] 100 mg PO DAILYCM 04/30/17 Oxycodone [Oxyir] 5 mg PO Q4H PRN PRN #20 tablet 05/04/17 Primary Care Physician: Huy Talbot III, MD [Primary Care Provider] - Meaningful Use Info Meaningful Use Diagnoses (Choose all that apply): None applicable
--- NOTE | 2017-05-13 13:33 | CASEMGMT ---
Per Sound Effects TechnicianMargy, request RN CM verified patient's phone number was correct on the hospital demographics sheet.
[2017-05-13] MEDS: Nepro Liquid 120 ML LIQUID PO (14:00)
--- NOTE | 2017-05-13 19:27 | DIALYSIS ---
HD X 3.45 HRS ON 2K BATH. UF-1000ML. BP LOW AT TIMES RESPONDED TO NS FLUSHES. RIJ CATH WITH GOOD FLOWS. VENOUS CHAMBER WITH CLOTS POST TX DUE TO NO HEPARIN DURING TX. REPORT TO FLOOR RN
== END 2017-05-13 19:56 | disposition home or self-care (01) ==
PROVIDERS: Admitting Provider Internal Medicine; Emergency Provider Emergency Medicine; Family Provider Family Medicine; PCP Family Medicine; Visit Provider Internal Medicine
DX: R10.9 Unspecified abdominal pain (principal); R18.8 Other ascites; J44.9 Chronic obstructive pulmonary disease, unspecified; I25.10 Atherosclerotic heart disease of native coronary artery without angina pectoris; E11.22 Type 2 diabetes mellitus with diabetic chronic kidney disease; I12.0 Hypertensive chronic kidney disease with stage 5 chronic kidney disease or end stage renal disease; N18.6 End stage renal disease; K72.90 Hepatic failure, unspecified without coma; M10.9 Gout, unspecified; I48.0 Paroxysmal atrial fibrillation; E78.5 Hyperlipidemia, unspecified; F17.210 Nicotine dependence, cigarettes, uncomplicated; K70.30 Alcoholic cirrhosis of liver without ascites; E87.1 Hypo-osmolality and hyponatremia; D72.829 Elevated white blood cell count, unspecified; Z95.0 Presence of cardiac pacemaker; Z99.2 Dependence on renal dialysis; Z79.899 Other long term (current) drug therapy; Z79.4 Long term (current) use of insulin; Z95.1 Presence of aortocoronary bypass graft
CPT/HCPCS: 74176; 80053; 82962; 83690; 85025; 96372; 96374; 96375 ×2; 96376 ×2; 97802; 99285; 49083; 90937; 99218; J7030; A4216; G0257; G0378; J2405